=== PATIENT | female | born 1965 | race Hispanic/Latino ===

== ENCOUNTER 2017-12-15 15:25 | Emergency (ER) | payer MEDICAID, OTHER ==
[2017-12-15 15:51] VITALS: TEMP 97.7
[2017-12-15] MEDS ORDERED: Sodium Chloride 0.9% 1,000 ML IV STA (16:12)
--- NOTE | 2017-12-15 16:16 | ED PDOC ---
HPI: General Adult Time Seen by Provider: 12/15/17 15:57 Chief Complaint (Nursing): GI Problem Chief Complaint (Provider): Vomit and diarrhea History Per: Patient History/Exam Limitations: no limitations Onset/Duration Of Symptoms: Days (today 2hrs ago) Current Symptoms Are (Timing): Better Additional Complaint(s): Pt. with dizziness, light-headed. Also with nausea, vomit, diarrhea nonbloody, few episodes. Was anxious so she took a xanax 0.25mg. [place] ok in the mornign after that but then symptoms started. This is only the second time she has taken the med. Pt. denies any numbness, tingles, weakness, headaches, vision changes, dysuria, abd pain, dyspnea. No neck pain, cough. No fever. Had chest tightness briefly that went away on its own. Not suicidal or homicidal. No new food or drinks. Has stress yesterday and today from a family green party yesterday. Past Medical History Reviewed: Nursing Documentation, Vital Signs Vital Signs: Last Vital Signs Temp 97.7 F 12/15/17 15:39 Pulse 75 12/15/17 19:02 Resp 19 12/15/17 17:49 BP 145/90 12/15/17 19:02 Pulse Ox 100 12/15/17 19:02 - Medical History PMH: Anxiety, HTN, Hypercholesterolemia Denies: Chronic Kidney Disease Other PMH: psoriasis - Family History Family History: States: Unknown Family Hx - Living Arrangements Living Arrangements: With Family - Social History Alcohol: None Drugs: Denies - Home Medications Home Medications: Ambulatory Orders Medication Instructions Recorded Ondansetron [Zofran Odt] 4 mg PO ASDIR PRN #20 odt 03/08/16 - Allergies Allergies/Adverse Reactions: Allergies Allergy/AdvReac Type Severity Reaction Status Date / Time No Known Allergies Allergy Verified 03/07/16 21:23 Review of Systems ROS Statement: Except As Marked, All Systems Reviewed And Found Negative Cardiovascular: Positive for: Chest Pain Gastrointestinal: Positive for: Nausea, Vomiting, Diarrhea Neurological: Positive for: Dizziness Psych: Positive for: Anxiety Physical Exam - Reviewed Nursing Documentation Reviewed: Yes Vital Signs Reviewed: Yes - Physical Exam Appears: Positive for: Non-toxic, No Acute Distress Head Exam: Positive for: ATRAUMATIC, NORMAL INSPECTION, NORMOCEPHALIC Skin: Positive for: Normal Color, Warm, DRY Eye Exam: Positive for: EOMI, Normal appearance, PERRL ENT: Positive for: Normal ENT Inspection Neck: Positive for: Normal, Painless ROM, Supple Cardiovascular/Chest: Positive for: Regular Rate, Rhythm. Negative for: Edema Respiratory: Positive for: CNT, Normal Breath Sounds Gastrointestinal/Abdominal: Positive for: Normal Exam, Soft. Negative for: Tenderness Back: Positive for: Normal Inspection. Negative for: L CVA Tenderness, R CVA Tenderness Extremity: Positive for: Normal ROM, Other (R wrist/forearm with psoriatic rash (old per pt.)). Negative for: Tenderness, Pedal Edema Neurologic/Psych: Positive for: Alert, flying [employer] worker II-XII, Oriented. Negative for: Motor/Sensory Deficits, Facial Droop - Laboratory Results Result Diagrams: 12/15/17 16:20 12/15/17 16:20 Interpretation Of Abn Labs: 20 bun - ECG ECG: Positive for: Interpreted By Me, Viewed By Me ECG Rhythm: Positive for: Normal QRS, Normal ST Segment, Sinus Rhythm O2 Sat by Pulse Oximetry: 98 Pulse Ox Interpretation: Normal - Radiology X-Ray: Read By Radiologist X-Ray Interpretation: No Acute Disease - CT Scan/US ct Other Rad Studies (CT/US): Read By Radiologist Other Rad Interpretation: no acute - Progress ED Course And Treament: 1705: Pt. states she is dizzy still. Will give antivert. Fluids still not given. Nurse working on IV. Pt. wanted it out of 1 arm and being put in the other arm. 1930: Feels much better. AAOx3. Pain free. Tolerated PO. Ambulated with no issues. Benzo still in urine, likely partial cause of pt. symptoms. Disposition - Clinical Impression Clinical Impression: Dehydration, Dizziness - Patient ED Disposition Is Patient to be Admitted: No Counseled Patient/Family Regarding: Studies Performed, Diagnosis, Need For Followup - Disposition Referrals: [facility] [Outside] - 12/16/17 Disposition: Routine/Home Disposition Time: 19:32 Condition: STABLE Additional Instructions: Return if not better in 3 days. Instructions: Dehydration, Adult (DC), Dizziness, Nonvertigo, (DC) Forms: [employer] (Slovak)
[2017-12-15 16:28] LABS: BASO % 0.2 % (0.0-2.0); EOS # 0.1 K/uL (0.0-0.7); EOS % 0.8 % (0.0-4.0); HEMOGLOBIN 13.6 g/dL (12.0-16.0); LYMPH # 0.8 K/uL (1.0-4.3); LYMPH % 5.9 % (20.0-40.0); MEAN CELL VOLUME 85.6 fl (81.0-99.0); MEAN CORPUSCULAR HEMOGLOBIN 29.1 pg (27.0-31.0); MEAN CORPUSCULAR HGB CONC 33.9 g/dL (33.0-37.0); MEAN PLATELET VOLUME 8.9 fl (7.2-11.7); MONO # 0.8 K/uL (0.0-0.8); MONO % 5.7 % (0.0-10.0); NEUT # 12.1 K/uL (1.8-7.0); NEUT % 87.4 % (50.0-75.0); PLATELET COUNT 268 K/uL (130-400); RBC 4.66 Mil/uL (3.80-5.20); RED CELL DISTRIBUTION WIDTH 15.5 % (11.5-14.5); WHITE BLOOD COUNT 13.8 K/uL (4.8-10.8)
[2017-12-15 16:44] LABS: ALB/GLOB RATIO 1.1 (1.0-2.1); ALBUMIN 4.5 g/dL (3.5-5.0); ALT/SGPT 28 U/L (9-52); AST/SGOT 20 U/L (14-36); BLOOD UREA NITROGEN 20 mg/dl (7-17); CALCIUM 9.4 mg/dL (8.4-10.2); GFR AFRICAN-AMERICAN > 60; GFR NON-AFRICAN AMERICAN > 60
[2017-12-15 17:17] VITALS: RESP 19
--- NOTE | 2017-12-15 17:41 | CT ---
PROCEDURE: CT scan brain 12/15/2017. . HISTORY: Dated 12/15/2017 the dizziness COMPARISON: No prior study available for comparison TECHNIQUE: Axial computed tomography images were obtained through the head/brain without intravenous contrast. Radiation dose: Total exam DLP = 735.53 mGy-cm. This CT exam was performed using one or more of the following dose reduction techniques: Automated exposure control, adjustment of the mA and/or kV according to patient size, and/or use of iterative reconstruction technique FINDINGS: HEMORRHAGE: No acute parenchymal, subarachnoid or extra-axial hemorrhage. BRAIN: No evidence of large acute infarct. Note that the possibility of a tiny hyperacute infarct cannot be completely excluded. Clinical correlation therefore recommended. No obvious parenchymal nor extra-axial mass or collection seen on this noncontrast study. VENTRICLES: No obstructive hydrocephalus. CALVARIUM: No acute calvarial fractures. PARANASAL SINUSES: Frontal sinuses are slightly underpneumatized on more so on the right side. The remaining visualized paranasal sinuses well-developed and currently well-aerated. No fluid levels seen to suggest acute sinusitis. MASTOID AIR CELLS: Unremarkable as visualized. No inflammatory changes. OTHER FINDINGS: None. IMPRESSION: No acute intracranial hemorrhage.
--- NOTE | 2017-12-15 17:48 | RAD ---
HISTORY: Dyspnea. COMPARISON: No prior. FINDINGS: LUNGS: No active pulmonary disease. PLEURA: No significant pleural effusion identified, no pneumothorax apparent. CARDIOVASCULAR: No radiographic findings to suggest acute or significant cardiovascular disease. OSSEOUS STRUCTURES: No significant abnormalities. VISUALIZED UPPER ABDOMEN: Normal. OTHER FINDINGS: None. IMPRESSION: No active disease.
[2017-12-15 18:32] LABS: BASOPHIL 1 % (0-2); LYMPHOCYTE 7 % (20-50); MONOCYTE 6 % (0-10); NEUTROPHIL 86 % (42-75); PLATELET ESTIMATE NORMAL (NORMAL); TOTAL CELLS COUNTED 100
[2017-12-15 18:33] LABS: ANISOCYTOSIS SLIGHT; LARGE PLATELETS PRESENT; OVALOCYTES SLIGHT
[2017-12-15 18:57] LABS: BARBITURATES, UR NEGATIVE (NEGATIVE); BENZODIAZEPINES, UR POSITIVE (NEGATIVE); OPIATES, UR NEGATIVE (NEGATIVE); PHENCYCLIDINE, UR NEGATIVE (NEGATIVE)
[2017-12-15 19:02] VITALS: BP 145/90; PULSE 75
[2017-12-15 19:32] VITALS: O2SAT 98
--- NOTE | 2017-12-16 11:45 | CARD ---
APPROVED REPORT EKG Measurement Heart [id number] [id number] <Conclusion> Normal sinus rhythm Normal ECG
== END 2017-12-15 20:07 | disposition home or self-care (01) ==
LOC: H.ER 15:25
DX: E86.0 Dehydration (principal); R42 Dizziness and giddiness; E78.00 Pure hypercholesterolemia, unspecified; F41.9 Anxiety disorder, unspecified; I10 Essential (primary) hypertension
CPT/HCPCS: 70450; 71045; 80053; 80320; 80324; 80345; 80346; 80349; 80353; 80358; 80361; 81025; 83992; 84484; 85025; 93005; 99284; J7040